=== PATIENT | male | born 1950 | race Two or more races ===

== ENCOUNTER 2019-11-19 02:07 | Emergency (ER) | payer OTHER ==
[~2019-11-19] VITALS: Ht 175.3 cm; Wt 115.7 kg
[2019-11-19] MEDS ORDERED: CRESTOR5 MG (02:23)
[2019-11-19] MEDS ORDERED: CARDURA XL4 MG (02:23)
[2019-11-19] MEDS ORDERED: LOTREL 5-40 MG1 EACH (02:23)
[2019-11-19] MEDS ORDERED: METFORMIN HCL500 M3 (02:23)
== END 2019-11-19 06:47 | disposition home or self-care (01) ==
LOC: ER 02:07
DX: R42 Dizziness and giddiness (principal); I10 Essential (primary) hypertension

== ENCOUNTER 2020-05-19 07:35 | Outpatient (CLI) | payer OTHER ==
[~2020-05-19 07:35] MED LIST: CARDURA XL4 MG; CRESTOR5 MG; LOTREL 5-40 MG1 EACH; METFORMIN HCL500 M3
== END 2020-05-19 07:38 | disposition home or self-care (01) ==
LOC: NUCLEAR 07:35
PROVIDERS: ATTEND Internal Medicine Cardiovascular Disease
DX: R07.89 Other chest pain (principal); I20.9 Angina pectoris, unspecified
CPT/HCPCS: 78452; 93017; A9500; J0153